=== PATIENT | female | born 1975 | race Caucasian/White ===

== ENCOUNTER 2017-07-05 16:13 | Emergency (ER) | payer MEDICAID ==
[~2017-07-05] VITALS: Wt 78.2 kg
[~2017-07-05 16:13] MED LIST: PRENATAL MEDS
[2017-07-05] MEDS ORDERED: TETRACAINE 0.5% 4 ML OPH LEFT EYE STA (17:24)
[2017-07-05] MEDS ORDERED: FLUORESCEIN STRIP LEFT EYE ONE (17:30)
[2017-07-05] MEDS ORDERED: PRED20TA PO (17:32)
[2017-07-05] MEDS ORDERED: HYDR-906 PO (17:33)
[2017-07-05] MEDS ORDERED: KTR.5OP5 BOTH EYES (17:36)
--- NOTE | 2017-07-05 17:50 | ERD ---
ER Documentation Chief Complaint Chief Complaint LEFT EYE PAIN/REDNESS X 1 WEEK HPI This is a 42-year-old female presenting to the emergency department complaining of left eye pain and redness for the past week. Patient states that the pain is increased in bright lights, she complains of photophobia and tearing. She denies any discharge, versed, foreign body ROS All systems reviewed and are negative except as per history of present illness. Medications Home Meds Active Scripts Ketorolac Tromethamine (Acular) 5 Ml Drops, 5 ML BOTH EYES Q6 for 5 Days, BOTTLE Prov:CHAU CASH PA-C 07/05/17 Hydrocodone/Acetaminophen ([place] 5-325 Tablet) 1 Each Tablet, 1-2 TAB PO Q6H Y for PAIN, #30 TAB Prov:CHAU CASH PA-C 07/05/17 Prednisone* (Prednisone*) 20 Mg Tab, 40 MG PO DAILY for 5 Days, TAB Prov:CHAU CASH PA-C 07/05/17 Reported Medications [ Meds] No Conflict Check 10/24/12 Allergies Allergies: Coded Allergies: No Known Allergies (Unverified Allergy, Unknown, 11/07/12) PMhx/Soc History of Surgery: Yes (C SECTIONS 1996. 2007) Anesthesia Reaction: No Hx Neurological Disorder: No Hx Respiratory Disorders: No Hx Cardiac Disorders: No Hx Psychiatric Problems: No Hx Miscellaneous Medical Probl: No Hx Alcohol Use: No Hx Substance Use: No Hx Tobacco Use: No Physical Exam Vitals Vital Signs Date Time Temp Pulse Resp B/P Pulse Ox O2 Delivery O2 Flow Rate FiO2 07/05/17 16:15 99.4 92 18 160/89 99 Physical Exam General: WD/WN, in no apparent distress, non-toxic appearing HENT: NC/AT EYES: Conjunctiva erythematous with limbic sparing, no icterus Extraocular muscles intact, pupils equal and reactive to light with consensual response No ptosis, proptosis Negative Yvonne test NECK: Supple; no LAD PULM: Normal labored breathing CV: RRR Good capillary refill GI: Non-distended, no guarding BACK: No masses EXT: No clubbing, cyanosis, or edema NEURO: Moves on all fours SKIN: intact PSYCH: Normal mood Results 24 hrs Current Medications Medications (Trade) Dose Ordered Sig/Edgar Route PRN Reason Start Time Stop Time Status Last Admin Dose Admin Fluorescein Sodium (Fqdqm-O-Autrp) 1 strip ONCE ONCE LEFT EYE 07/05/17 17:30 07/05/17 17:32 DC Tetracaine HCl (Tetracaine 0.5% Steri-Unit Patricia) 1 drop DAILY STAT LEFT EYE 07/05/17 17:24 07/05/17 17:32 DC Procedures/MDM Is a 42-year-old female presenting to the emergency department with left eye erythema and pain for the past week 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 Patient was given prescription for oral prednisone for 5 days,Acular, and [place] as directed to follow-up with the primary care physician tomorrow in an [place]. There was no evidence of glaucoma, foreign body. Patient is stable to be discharged home with strict precautions to return emergency department for any worsening signs or symptoms Departure Diagnosis: Primary Impression: Uveitis Condition: Stable Patient Instructions: What Is Uveitis?, Treating Uveitis, Uveitis Referrals: [facility] Usted se díaz hecho un examen mdico de control que le indica que no est en reema condicin que requiera tratamiento urgente en el Departamento de Emergencia. Un estudio ms profundo y el tratamiento de kwok condicin pueden esperar sin ningn riesgo hasta que usted sea atendida/o en el consultorio de kwok mdico o reema cl harvey. Es responsabilidad suya arreglar reema moi para el seguimiento del ezekiel. MANEJO DE CONDICIONES NO URGENTES EN EL FUTURO 1) Si usted tiene un mdico de atencin primaria: Usted debera llamar a kwok mdico de atencin primaria antes de venir al departamento de emergencia. Despus de las horas de consultorio, kwok doctor o kwok asociado/a est disponible por telfono. El mdico o enfermero de maryan en el servicio telefnico puede asesorarle por nancy medio para atender el problema, o ezekiel contrario se puede programar reema moi. 2) Si usted no tiene un mdico de atencin primaria: Llame al mdico o clnica de referencia que aparece abajo baltazar las horas de consultorio para hacer reema moi para que le vean. CLINICAS: [facility] [phone] [facility] [phone] [facility] [phone] [place] [address] [phone] [place] [address] [phone] [facility] [phone] [address] [facility] DEMETRIS RDOmid [facility] Hours: Mon - Fri 9:00 AM - 5:00 PM Additional Instructions: Visite a kwok mdico maana para un EXAMEN.Regrese a estas instalaciones si no se mejora yina esperbamos o yina le dijimos. [place] toda la medicina boni y yina se le indic. Regrese a estas instalaciones si no se mejora yina esperbamos o yina le dijimos. La medicina que se le recet puede causarle sueo.NO DEBE MANEJAR NI OPERAR MAQUINARIAS PELIGROSAS mientras esta tomando esta medicina! CHAU CASH PA-C Jul 05, 2017 17:50
== END 2017-07-05 19:01 | disposition home or self-care (01) ==
LOC: FTE 16:13
DX: H20.9 Unspecified iridocyclitis (principal)
CPT/HCPCS: 99284

== ENCOUNTER 2017-10-20 14:53 | Inpatient (IN) | END 2017-10-24 12:50 | disposition home or self-care (01) | DRG 812 ==